=== PATIENT | female | born 1975 | race Hispanic/Latino ===

== ENCOUNTER 2019-11-14 16:35 | Emergency (ER) | payer OTHER, SELFPAY ==
[2019-11-14] MEDS ORDERED: Cyclobenzaprine 10 MG TAB ONE (17:38)
[2019-11-14] MEDS ORDERED: Ketorolac Tromethamine 30 MG/ML VIAL ONE (17:38)
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
--- NOTE | 2019-11-17 14:28 | EKG ---
Test Reason : ER Blood Pressure : / mmHG Vent. Rate : 073 BPM Atrial Rate : 073 BPM P-R Int : 102 ms QRS Dur : 066 ms QT Int : 380 ms P-R-T Axes : 039 017 049 degrees QTc Int : 418 ms Sinus rhythm with short NC Otherwise normal ECG Confirmed by DERICK WHELAN DO ([id number]), legal editor FER CM ([id number] on 11/17/2019 2:27:48 PM Referred By: Confirmed By:DERICK WHELAN DO
== END 2019-11-14 18:10 | disposition home or self-care (01) ==
LOC: ERS 16:35
DX: S70.02XA Contusion of left hip, initial encounter (principal); S80.12XA Contusion of left lower leg, initial encounter; I10 Essential (primary) hypertension; V49.50XA Passenger injured in collision with unspecified motor vehicles in traffic accident, initial encounter
CPT/HCPCS: 71045; 93005; 96374; J1885